=== PATIENT | male | born 1960 | race African-American/Black ===

== ENCOUNTER 2019-07-28 03:59 | Emergency (ER) | payer MEDICAID ==
[~2019-07-28] VITALS: Ht 185.4 cm; Wt 83.9 kg
--- NOTE | 2019-07-28 04:35 | NUR ---
CALLED TO ER PT SLEEPING.
[2019-07-28] MEDS ORDERED: IBUPROFEN 600 MG TABLET PO ONE ×2 (05:49→06:00)
--- NOTE | 2019-07-28 05:53 | NUR ---
BIBS TO ER BED 1. AAOX4. NO RESP DISTRESS NOTED. AMULATORY. C/O PAIN ON THE BACK OF THE NECK X 2 DAYS. PER PT, HE FELL ASLEEP WITH HIS HEAD BENT DOWN BECAUSE HE WAS AVOIDING THE SUN HITTING HIS EYES WHILE SLEEPING. WHEN HE AWOKEN, PT STARTED TO HAVE THE PAIN. PAIN IS RATED 8/10 WITH SENSATION DESCRIBED "I FEEL A KNOT". ROM INTACT. PAIN PRESENT ON FLEXION AND EXTENSION. NO RIGIDITY. MADE AWARE. ORDERED TO GIVEN IBUPROHEN 600MG PO X 1. ORDERS NOTED AND CARRIED OUT
[2019-07-28] MEDS ORDERED: KETOROLAC TROMETHAMINE INJ 60 MG/2 ML VIAL IM ONE (06:30)
[2019-07-28] MEDS ORDERED: KETOROLAC TROMETHAMINE INJ 30 MG/ML VIAL ONE (06:30)
--- NOTE | 2019-07-28 06:38 | NUR ---
Patient discharged to home in stable condition. Written and verbal after care instructions given. Patient verbalizes understanding of instruction. Pt ambulatory with a steady gait
[2019-07-28 06:41] VITALS: BP 143/75
== END 2019-07-28 06:41 | disposition home or self-care (01) ==
LOC: ER 04:00
DX: S13.8XXA Sprain of joints and ligaments of other parts of neck, initial encounter (principal); F17.210 Nicotine dependence, cigarettes, uncomplicated; X58.XXXA Exposure to other specified factors, initial encounter; Y93.89 Activity, other specified; Y92.89 Other specified places as the place of occurrence of the external cause; Y99.8 Other external cause status
CPT/HCPCS: 96372; 99283; J1885

== ENCOUNTER 2019-09-07 04:34 | Inpatient (IN) | payer MEDICAID ==
[~2019-09-07] VITALS: Ht 182.9 cm; Wt 80.7 kg
--- NOTE | 2019-09-07 04:39 | NUR ---
CALLED FOR TRIAGE. NO RESPONSE.
--- NOTE | 2019-09-07 04:45 | NUR ---
PT CAME INTO THE ED C/O "COUGH W/ CONGESTION ON AND OFF FOR A WHILE" AND NECK PAIN. PT AAOX3, RR EVEN AND UNLABORED ON W/ RA W/ NAD NOTED. PT CONNECTED TO THE MONITOR AND POX
[2019-09-07] MEDS ORDERED: HYDROCODONE/APAP 5/325MG 1 EACH TABLET ONE ×2 (05:44→06:22)
--- NOTE | 2019-09-07 05:48 | NUR ---
EKG AT BEDSIDE
[2019-09-07 05:58] LABS: BASOPHILS # (AUTO) 0.1 /CMM (0.0-0.2); BASOPHILS % (AUTO) 0.4 % (0.0-2.0); EOSINOPHILS % (AUTO) 0.1 % (0.0-6.0); HEMATOCRIT 41 % (39-51); HEMOGLOBIN 14.2 g/dL (13.5-17.5); LYMPHOCYTES # (AUTO) 0.9 /CMM (0.8-4.8); LYMPHOCYTES % (AUTO) 6.4 % (20.0-44.0); MEAN CORPUSCULAR HGB CONC 35 g/dl (31.0-36.0); MEAN CORPUSCULAR VOLUME 94 fL (80-96); MONOCYTES # (AUTO) 1.4 /CMM (0.1-1.30); NEUTROPHILS # (AUTO) 11.6 /CMM (1.8-8.9); NEUTROPHILS % (AUTO) 83.1 % (43.0-81.0); PLATELET COUNT (AUTO) 243 /CMM (150-450); RED BLOOD CELL COUNT(AUTO) 4.34 MIL/uL (4.5-6.0)
[2019-09-07] MEDS ORDERED: HYDROCODONE/APAP 5/325MG 1 EACH TABLET PO ONE ×2 (06:00→06:30)
[2019-09-07 06:17] LABS: ALBUMIN 2.9 g/dL (3.4-5.0); BILIRUBIN,DIRECT 0.7 mg/dL (0.0-0.2); BILIRUBIN,TOTAL 1.2 mg/dL (0.2-1.0); CALCIUM, SERUM 9.2 mg/dL (8.5-10.1); CREATININE 1.3 mg/dL (0.6-1.3); TOTAL PROTEIN, SERUM 8.1 g/dL (6.4-8.2)
[2019-09-07 06:18] LABS: POTASSIUM 2.7 mmol/L (3.5-5.1)
[2019-09-07] MEDS ORDERED: AZITHROMYCIN 250 MG TABLET ONE (06:22)
[2019-09-07] MEDS ORDERED: POTASSIUM CHLORIDE 20 MEQ TAB.PRT.SR PO ONE ×2 (06:22→06:30)
[2019-09-07] MEDS ORDERED: ALBUTEROL FS 2.5 MG/3 ML VIAL.NEB ONE (06:27)
[2019-09-07] MEDS ORDERED: IPRATROPIUM NEB FS 0.5 MG/2.5 ML AMPUL.NEB ONE (06:27)
--- NOTE | 2019-09-07 06:28 | NUR ---
RT AT BEDSIDE
[2019-09-07] MEDS ORDERED: IPRATROPIUM NEB FS 0.5 MG/2.5 ML AMPUL.NEB NEB ONE (06:30)
[2019-09-07] MEDS ORDERED: AZITHROMYCIN 250 MG TABLET PO ONE (06:30)
[2019-09-07] MEDS ORDERED: ALBUTEROL FS 2.5 MG/3 ML VIAL.NEB NEB ONE (06:30)
[2019-09-07] MEDS ORDERED: CEFTRIAXONE 1GM BAG (ER ONLY) 50 ML IV ONE (06:37)
[2019-09-07] MEDS ORDERED: hydrALAZINE HCL IV 20 MG VIAL ONE (06:45)
[2019-09-07] MEDS ORDERED: CEFTRIAXONE 1GM BAG (ER ONLY) 1 GM/50 ML PIGGYBACK IV ONE (07:00)
[2019-09-07] MEDS ORDERED: hydrALAZINE HCL IV 20 MG VIAL IV ONE (07:00)
[2019-09-07] MEDS ORDERED: IV NS 0.9% 1,000 ML BAG IV ONE (07:00)
--- NOTE | 2019-09-07 07:10 | NUR ---
URINE COLLECTED AND SENT TO LAB
--- NOTE | 2019-09-07 07:55 | NUR ---
CALLED [facility] ITS DR. SANCHEZ
[2019-09-07 08:00] LABS: APPEARANCE,URINE Clear (CLEAR); BILIRUBIN,URINE SMALL (NEGATIVE); BLOOD, URINE Moderate Ery/uL (NEGATIVE); COLOR,URINE Yellow (YELLOW); KETONES,URINE 15 (NEGATIVE); LEUKOCYTE ESTERASE ,URINE Negative (NEGATIVE); NITRITE, URINE Negative (NEGATIVE); PH,URINE 6.5 (5.0-8.0); PROTEIN,URINE >=300 mg/dl (NEGATIVE); UGLUCOSE Negative (NEGATIVE)
[2019-09-07 08:02] LABS: WBC,URINE 0-2 /HPF (0-3)
[2019-09-07 08:03] LABS: BACTERIA,URINE Rare /HPF (None Seen); SQUAMOUS EPITHELIAL CELL,UR Rare /HPF (None Seen)
--- NOTE | 2019-09-07 08:37 | NUR ---
[facility] BED 115-1
--- NOTE | 2019-09-07 10:20 | NUR ---
report given to Jose BAUGH for bettina
[2019-09-07] MEDS ORDERED: IV NS 0.9% 1,000 ML IV PRN (10:22)
[2019-09-07] MEDS ORDERED: Z GUARD REMEDY 2 OZ OINT TP PRN (10:30)
[2019-09-07] MEDS ORDERED: ONDANSETRON HCL/PF 4 MG/2 ML VIAL IVP PRN (10:30)
[2019-09-07] MEDS ORDERED: ZOLPIDEM TARTRATE 5 MG TABLET PO PRN (10:30)
[2019-09-07] MEDS ORDERED: ACETAMINOPHEN 325 MG TABLET PO PRN (10:30)
--- NOTE | 2019-09-07 10:36 | NUR ---
wheeled patient via gurney accompanied by RN and emt in no distress. ruddy rn at bedside to assume care.
[2019-09-07 11:34] VITALS: BP 166/95
[2019-09-07] MEDS: POTASSIUM CHLORIDE 20 MEQ TAB.PRT.SR PO SCH ×2 (11:45→12:58)
--- NOTE | 2019-09-07 13:09 | NUR ---
RN NOTES PATIENT IS LEAVING AMA, EXPLAINED BENEFITS VS RISKS, PT WISHES TO LEAVE. HE IS BEING UNCOOPERATIVE AND IS REMOVING THE TELE MONITOR AND REMOVING HIS IV LINE. DR. SANCHEZ WAS MADE AWARE OF PT DECISION
[2019-09-08] MEDS ORDERED: CEFTRIAXONE 1 G in IV D5W 50 ML IV SCH ×2 (06:00→07:00)
[2019-09-08] MEDS ORDERED: AZITHROMYCIN 500 MG in IV D5W 250 ML IV SCH (08:00)
== END 2019-09-07 14:30 | disposition left against medical advice (07) | DRG 720 ==
LOC: ER 04:34 → TELE1 10:07
PROVIDERS: ADMIT Internal Medicine; ATTEND Internal Medicine
DX: A41.9 Sepsis, unspecified organism (principal); J15.9 Unspecified bacterial pneumonia; I11.0 Hypertensive heart disease with heart failure; I50.32 Chronic diastolic (congestive) heart failure; E87.6 Hypokalemia; G89.29 Other chronic pain; Z59.0 Homelessness
CPT/HCPCS: 36415; 71045-TC; 80048-TC; 80076-TC; 81000-TC; 83605-TC; 83880; 84484-TC; 85025-TC; 85730-TC; 87040-TC; 87081-TC; 87086-TC; 97116-TC; 97530-TC; G0378; J0360; J0456; J0696; J7030; J7060

== ENCOUNTER 2020-04-06 21:50 | Emergency (ER) | payer MEDICAID, OTHER ==
[~2020-04-06] VITALS: Ht 180.3 cm; Wt 90.7 kg
--- NOTE | 2020-04-06 21:52 | NUR ---
PT DEBBIE FROM STREET C/O ALCOHOL INTOXICATION. NOTED STRONG SMELL OF ALCOHOL ON ARRIVAL. PT AWAKE. VITAL SIGNS STABLE. RESPIRATIONS EVEN AND UNLABORED. NO ACUTE DISTRESS NOTED AT THIS TIME. PLACED ON MONITOR, WILL CONTINUE TO MONITOR
--- NOTE | 2020-04-06 22:19 | NUR ---
LAST WAXER AT BEDSIDE FOR BLOOD DRAW.
--- NOTE | 2020-04-06 22:35 | NUR ---
PATIENT IS TAKEN TO CT VIA GURNEY BY [employer].
[2020-04-06 22:49] LABS: BASOPHILS # (AUTO) 0.1 /CMM (0.0-0.2); BASOPHILS % (AUTO) 1.3 % (0.0-2.0); EOSINOPHILS % (AUTO) 3.1 % (0.0-6.0); HEMATOCRIT 41 % (39-51); HEMOGLOBIN 14.2 g/dL (13.5-17.5); LYMPHOCYTES % (AUTO) 20.4 % (20.0-44.0); MEAN CORPUSCULAR HGB CONC 34 g/dl (31.0-36.0); MEAN CORPUSCULAR VOLUME 95 fL (80-96); MONOCYTES # (AUTO) 0.3 /CMM (0.1-1.30); MONOCYTES % (AUTO) 6.7 % (2.0-12.0); NEUTROPHILS # (AUTO) 3.5 /CMM (1.8-8.9); NEUTROPHILS % (AUTO) 68.5 % (43.0-81.0); PLATELET COUNT (AUTO) 174 /CMM (150-450); RED BLOOD CELL COUNT(AUTO) 4.37 MIL/uL (4.5-6.0); WHITE BLOOD COUNT (AUTO) 5.1 K/uL (4.3-11.0)
[2020-04-06 23:45] LABS: ALANINE AMINOTRANSFERASE 63 U/L (12-78); ALKALINE PHOSPHATASE 113 U/L (46-116); ASPARTATE AMINOTRANSFERASE 113 U/L (15-37); BILIRUBIN,DIRECT 0.4 mg/dL (0.0-0.2); BILIRUBIN,TOTAL 0.5 mg/dL (0.2-1.0); CALCIUM, SERUM 8.6 mg/dL (8.5-10.1); CARBON DIOXIDE 23 mmol/L (21-32); CHLORIDE 104 mmol/L (98-107); CREATININE 1.2 mg/dL (0.6-1.3); GLUCOSE 95 mg/dL (74-106); POTASSIUM 2.9 mmol/L (3.5-5.1); SALICYLATE 7.4 mg/dL (2.8-20.0); SODIUM SERUM 144 mmol/L (136-145); TOTAL PROTEIN, SERUM 7.3 g/dL (6.4-8.2); UREA NITROGEN, BLOOD 10 mg/dL (7-18)
[2020-04-06 23:47] LABS: ACETAMINOPHEN < 2 ug/ml (10-30)
[2020-04-06 23:59] LABS: ALCOHOL, BLOOD 367 mg/dL (0-0)
--- NOTE | 2020-04-07 | NUR ---
PT UNABLE TO PROVIDE URINE SAMPLE AT THIS TIME. MD ENAMORADO
[2020-04-07 00:27] LABS: APPEARANCE,URINE CLEAR (CLEAR); BILIRUBIN,URINE NEGATIVE (NEGATIVE); BLOOD, URINE TRACE-INTA Ery/uL (NEGATIVE); COLOR,URINE YELLOW (YELLOW); KETONES,URINE NEGATIVE (NEGATIVE); LEUKOCYTE ESTERASE ,URINE NEGATIVE (NEGATIVE); NITRITE, URINE NEGATIVE (NEGATIVE); PH,URINE 6.5 (5.0-8.0); PROTEIN,URINE 30 mg/dl (NEGATIVE); UGLUCOSE NEGATIVE (NEGATIVE)
[2020-04-07] MEDS ORDERED: POTASSIUM CHLORIDE 20 MEQ TAB.PRT.SR PO ONE ×2 (00:30→01:14)
[2020-04-07 00:37] LABS: BACTERIA,URINE None seen /HPF (None Seen); RBC,URINE 0-2 /HPF (0-2); SQUAMOUS EPITHELIAL CELL,UR Moderate /HPF (None Seen); WBC,URINE 0-2 /HPF (0-3)
[2020-04-07 00:38] LABS: MUCUS,URINE Few /LPF (None Seen)
--- NOTE | 2020-04-07 05:20 | NUR ---
PT AAOX4. AMBULATORY WITH STEADY GAIT. PER DR. FUCHS, MEDICALLY CLEARED FOR DISCHARGE
--- NOTE | 2020-04-07 05:26 | NUR ---
Patient discharged to home in stable condition. Written and verbal after care instructions given. Patient verbalizes understanding of instruction.Pt ambulatory with a steady gait. Pt left without ACI. Refused to sign homeless waiver. Offered patient food prior to discharge, refused. Clothing appropriate for discharge.
[2020-04-07 05:32] VITALS: BP 143/89
== END 2020-04-07 05:32 | disposition home or self-care (01) ==
LOC: ER 21:54
DX: F10.129 Alcohol abuse with intoxication, unspecified (principal); R41.82 Altered mental status, unspecified; F17.210 Nicotine dependence, cigarettes, uncomplicated; Y90.8 Blood alcohol level of 240 mg/100 ml or more
CPT/HCPCS: 36415; 70450; 80048; 80076; 80305; 80307; 80329; 81001; 85025; 99284; G0480; 81000-TC